=== PATIENT | female | born 1950 | race Caucasian/White ===

== ENCOUNTER 2017-10-17 15:06 | Emergency (ER) | payer OTHER ==
[2017-10-17 15:19] VITALS: RESP 20
[2017-10-17] MEDS ORDERED: LIDOCAINE HCL 1% 50 MG/5 ML SOL INFIL ONE (15:27)
[2017-10-17] MEDS ORDERED: LIDOCAINE HCL 1% MPF SOL ONE (15:27)
[2017-10-17 15:40] VITALS: TEMP 97.2
[2017-10-17] MEDS ORDERED: BACITRACIN 500 U/GM OIN TOP ONE ×2 (16:16→16:17)
[2017-10-17 16:21] VITALS: BP 153/91
[2017-10-17 16:53] VITALS: PULSE 95; O2SAT 95
== END 2017-10-17 16:40 | disposition home or self-care (01) | DRG 605 ==
LOC: ED 15:06
DX: S61.232A Puncture wound without foreign body of right middle finger without damage to nail, initial encounter (principal); W18.30XA Fall on same level, unspecified, initial encounter
CPT/HCPCS: 99284; J2001